=== PATIENT | male | born 1985 | race Two or more races ===

== ENCOUNTER 2019-08-05 09:23 | Emergency (ER) | payer SELFPAY ==
[~2019-08-05] VITALS: Ht 170.2 cm; Wt 71.0 kg
[2019-08-05] MEDS ORDERED: LORAZEPAM 2MG/ML CPJ IV STA (09:37)
[2019-08-05] MEDS ORDERED: SODIUM CHLORIDE 0.9% 1,000 ML IV ONE (09:37)
[2019-08-05 11:09] LABS: BASOPHILS % 0.7 % (0.0-2.0); EOSINOPHILS % 0.3 % (0.0-5.0); HEMOGLOBIN. 17.1 g/dL (14.0-18.0); LYMPHOCYTES % 13.1 % (20.0-50.0); MEAN CORPUSCULAR HEMOGLOBIN 31.5 pg (28.0-32.0); MONOCYTES % 5.9 % (2.0-8.0); PLATELET 326 x1000/uL (130-400); RED BLOOD CELL COUNT 5.45 mill/uL (4.7-6.1); RED CELL DISTRIBUTION WIDTH 13.2 % (11.6-14.6)
[2019-08-05 11:14] LABS: CHLORIDE 102 mEq/L (98-107)
[2019-08-05 11:18] LABS: ETHANOL BLOOD < 10 mg/dL
[2019-08-05 11:44] LABS: CLARITY URINE CLEAR (CLEAR); COLOR URINE YELLOW (YELLOW); KETONES URINE 1+ (NEGATIVE); LEUKOCYTE ESTERASE URINE NEGATIVE (NEGATIVE); NITRITE URINE NEGATIVE (NEGATIVE); OCCULT BLOOD URINE NEGATIVE (NEGATIVE); PROTEIN URINE 1+ (NEGATIVE); SPECIFIC GRAVITY URINE 1.028 (1.005-1.030); UROBILINOGEN URINE 0.2 E.U./dL (0.2-1.0)
[2019-08-05 11:57] LABS: *AMPHETAMINES SCREEN URINE PRESUMTIVE POSITIVE (NEGATIVE); *BARBITURATES SCREEN URINE NEGATIVE (NEGATIVE); *BENZODIAZEPINES SCREEN URINE NEGATIVE (NEGATIVE); *COCAINE SCREEN URINE NEGATIVE (NEGATIVE); METHADONE URINE SCREEN NEGATIVE (NEGATIVE); OPIATES URINE SCREEN NEGATIVE (NEGATIVE)
[2019-08-05 11:58] LABS: CANNABINOID URINE SCREEN PRESUMTIVE POSITIVE (NEGATIVE); PHENCYCLIDINE URINE SCREEN NEGATIVE (NEGATIVE)
[2019-08-05] MEDS ORDERED: LORAZEPAM 2MG/ML CPJ IM ONE (13:00)
[2019-08-05] MEDS ORDERED: HALOPERIDOL LACTATE 5MG/ML VIAL IM ONE (13:00)
[2019-08-05 14:28] VITALS: BP 122/89
== END 2019-08-05 14:28 | disposition home or self-care (01) ==
LOC: ER 09:23 → EDBD 09:23 → ER 14:28
DX: F19.10 Other psychoactive substance abuse, uncomplicated (principal); R41.82 Altered mental status, unspecified
CPT/HCPCS: 36415; 71045; 80053; 80305; 80307; 80320; 80329; 81003; 84484; 85025; 93005; 96374; 99285; J2060; J7030; G0480